=== PATIENT | male | born 1985 | race Caucasian/White ===

== ENCOUNTER 2019-09-21 12:05 | Emergency (ER) | payer BC, SELFPAY | END 2019-09-21 12:47 | disposition home or self-care (01) | LOC: BURERS 12:05 | DX: B02.9 Zoster without complications (principal); R00.0 Tachycardia, unspecified; I10 Essential (primary) hypertension; F90.9 Attention-deficit hyperactivity disorder, unspecified type; F17.210 Nicotine dependence, cigarettes, uncomplicated | CPT/HCPCS: 99282 ==

== ENCOUNTER 2019-10-18 18:32 | Emergency (ER) | payer SELFPAY | END 2019-10-18 19:00 | disposition home or self-care (01) | LOC: BURERS 18:32 | DX: B02.9 Zoster without complications (principal); I10 Essential (primary) hypertension; F17.210 Nicotine dependence, cigarettes, uncomplicated | CPT/HCPCS: 99282 ==